=== PATIENT | female | born 1940 | race Caucasian/White ===

== ENCOUNTER 2016-10-06 11:43 | Emergency (ER) | payer OTHER ==
[~2016-10-06] VITALS: Ht 175.3 cm; Wt 74.4 kg
[2016-10-06] MEDS ORDERED: AMLODIPINE BESYL5 M1 PO (12:12)
[2016-10-06] MEDS ORDERED: TRIAMTERENE-HC1 EAC1 PO (12:12)
--- NOTE | 2016-10-06 12:12 | ED HAND/WRIST INJURY COMPLAINT ---
History of Present Illness General Chief Complaint: Hand or Wrist Injury Stated Complaint: LEFT HAND PAIN NO INJURY Source: patient Exam Limitations: no limitations Vital Signs & Intake/Output Vital Signs & Intake/Output Vital Signs Date Time Temp Pulse Resp B/P Pulse O2 O2 Flow FiO2 Ox Delivery Rate 10/06 1349 98.0 88 18 146/72 96 Room Air 10/06 1147 97.7 91 20 159/78 97 Room Air Allergies Coded Allergies: NO KNOWN ALLERGIES (03/10/11) NKA PER ANTIBIOTIC ORDER SHEET - SJS Reconcile Medications Amlodipine Besylate 5 MG TABLET 1 TAB PO DAILY HEART (Reported) Calcium Carbonate (TUMS) 200 MG CALCIUM (500 MG) TAB.CHEW 2 TAB PO DAILY GI ( Reported) Multivit-Min/FA/Lycopen/Lutein (Centrum Silver Tablet) 0.4 MG-300 MCG-250 MCG TABLET 1 TAB PO DAILY SUPPLEMENT (Reported) Simvastatin (Simvastatin*) 20 MG TABLET 1 TAB PO QPM CHOLESTEROL (Reported) Triamterene/Hydrochlorothiazid (Triamterene-Hctz 37.5-25 MG Tb) 37.5 MG-25 MG TABLET 1 TAB PO DAILY HEART (Reported) Triage Note: PT TO ED C/O LEFT HAND PAIN SINCE TUESDAY NIGHT. DENIES ANUY OBVIOUS INJURY. "I DON'T KNOW IF IT'S SPRAINED OR THE GOUT." TOOK ADVIL WITH SOME RELIEF. DECLINING MEDS IN TRIAGE. Triage Nurses Notes Reviewed? yes Occurred: yesterday Duration: day(s): (1), constant Timing: recent history Injury Environment: home Severity: moderate, severe Pain/Injury Location: Left: Wrist. Method of Injury: lifting No Modifying Factors: none HPI: 76-year-old female comes into emergency room for further evaluation of left wrist pain. Patient reports that she was lifting a heavy pot yesterday and has been experiencing pain and swelling in the left wrist since then. Denies any direct trauma. Denies any falls. Pain is worse with any type or range of motion. Denies any other associated symptoms. (SADIA GREY,COMFORT) Past History Travel History Traveled to [place] past 21 day No Medical History Any Pertinent Medical History? none Surgical History Surgical History: non-contributory Psychosocial History Who do you live with Spouse Services at Home None What is your primary language Italian Tobacco Use: Never used ETOH Use: denies use Illicit Drug Use: denies illicit drug use Family History Hx Contributory? No (COMFORT GERARD) Review of Systems Review of Systems Constitutional: Reports: no symptoms. EENTM: Reports: no symptoms. Respiratory: Reports: no symptoms. Cardiovascular: Reports: no symptoms. GI: Reports: no symptoms. Genitourinary: Reports: no symptoms. Musculoskeletal: Reports: see HPI. Skin: Reports: no symptoms. Neurological/Psychological: Reports: no symptoms. Hematologic/Endocrine: Reports: no symptoms. Immunologic/Allergic: Reports: no symptoms. All Other Systems: Reviewed and Negative (COMFORT GERARD) Physical Exam Physical Exam General Appearance: well developed/nourished, mild distress Head: atraumatic Eyes: Bilateral: normal appearance. Ears, Nose, Throat: normal ENT inspection, hearing grossly normal Neck: normal inspection Cardiovascular/Respiratory: no respiratory distress Back: normal inspection Wrist Left: soft tissue tenderness, limited range of motion Hand Left: normal inspection Hand Right: normal inspection Neurologic/Tendon: normal motor functions, normal tendon functions, responds to pain Skin: intact, normal color, warm/dry Lymphatic: no anterior cervical marisol (COMFORT GERARD) Progress Differential Diagnosis: contusion, compartment syndrome, dislocation, felon, fracture, paronychia, septic arthritis, sprain, tenosynovitis Plan of Care: Orders Procedure Date/time Status Durable Medical Equipment 10/06 1330 Active Diagnostic Imaging: Viewed by Me: Radiology Read. Discussed w/RAD: Radiology Read. Radiology Impression: EXAM TYPE: RAD - XRY-WRIST COMPLETE-LEFT EXAMINATION: XR WRIST, LEFT CLINICAL INFORMATION: Pain. Evaluate for fracture. COMPARISON: None TECHNIQUE: Left wrist, 4 views. FINDINGS: Chondrocalcinosis of the wrist, including involvement of the scapholunate ligament, lunatotriquetral ligament and triangular fibrocartilage. 0.3 cm of ulna negative variance. The distal radius and ulna are intact. No soft tissue swelling in the examined forearm. Scapholunate joint space measures nearly 0.5 cm wide; this suggests presence of tearing or stretching of the scapholunate ligament. The radiocarpal and midcarpal joint spaces are maintained. Small marginal osteophytes are present at the first carpometacarpal joint. No evidence of carpal bone fracture. IMPRESSION : 1. No acute osseous injury. 2. 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 3. Mild osteoarthrosis of the first carpometacarpal joint. DICTATED BY: IRIS PERRY MD DATE/TIME DICTATED:1313 PUBLIC RELATIONS ANALYST:CORINNE DATE/TIME TRANSCRIBED:10/06/161313 (COMFORT GERARD) Departure Departure Disposition: HOME OR SELF CARE Condition: Stable Clinical Impression Primary Impression: Scapholunate ligament injury with no instability Referrals: FAISAL ALVAREZ,DANNA Hartmann (PCP/Family) ANA CRISTINA TYSON MD Additional Instructions: Ice. Take Tylenol for pain. Follow-up with orthopedic doctor. Return if any concerns worsening symptoms. Please go over all results of today's visit with your primary care doctor. Contact your primary care doctor to let them know you were here in the emergency room. There may be nonspecific findings which may not be related to your visit today here in the emergency room but may require further evaluation and chronic monitoring by your primary care doctor. If you had a laceration today the chance of foreign body always remains. You should follow-up with your primary care doctor for recheck in 3-5 days for a wound check. If you had an x-ray done there is a chance that a fracture could have been missed on initial read and you should follow-up with your primary care doctor for repeat x-rays if symptoms persist. If your blood pressure was elevated here in the emergency room please have rechecked by her primary care doctor within the next 48 hours by your primary care doctor. If you were prescribed a narcotic here in the emergency room or any type of controlled substances you're not allowed to drive while taking this medication or operate any type of heavy machinery. Narcotics can make you feel lightheaded dizziness nausea and can cause constipation. You may need to picking machine operator a stool softener. Thank you for choosing [facility] emergency room. Please return to the emergency room immediately if you have any other concerns worsening of symptoms. Departure Forms: Customer Survey General Discharge Information (COMFORT GERARD) PA/SPOUTING INSTALLER Co-Sign Statement Statement: ED Attending supervision documentation- x I saw and evaluated the patient. I have also reviewed all the pertinent lab results and diagnostic results. I agree with the findings and the plan of care as documented in the PA's/SPOUTING INSTALLER's documentation. [] I have reviewed the ED Record and agree with the PA's/SPOUTING INSTALLER's documentation. [] Additions or exceptions (if any) to the PAs/SPOUTING INSTALLER's note and plan are summarized below: [] (LELA ALVAREZ,KIM) Procedures Splinting Location: left wrist Manual Alignment Performed: No Pre-Made Type: velcro Splint: thumb spica, wrist Splint Applied By: splint applied by me Pre-Proc Neuro Vasc Exam: normal Post-Proc Neuro Vasc Exam: normal (COMFORT GERARD)
[2016-10-06] MEDS ORDERED: CENTRUM SILVER1 EAC3 PO (12:13)
[2016-10-06] MEDS ORDERED: TUMS200 MG PO (12:13)
[2016-10-06] MEDS ORDERED: SIMVASTATIN20 M2 PO (12:13)
--- NOTE | 2016-10-06 13:21 | RADIOLOGY REPORT ---
EXAMINATION: XR WRIST, LEFT CLINICAL INFORMATION: Pain. Evaluate for fracture. COMPARISON: None TECHNIQUE: Left wrist, 4 views. FINDINGS: Chondrocalcinosis of the wrist, including involvement of the scapholunate ligament, lunatotriquetral ligament and triangular fibrocartilage. 0.3 cm of ulna negative variance. The distal radius and ulna are intact. No soft tissue swelling in the examined forearm. Scapholunate joint space measures nearly 0.5 cm wide; this suggests presence of tearing or stretching of the scapholunate ligament. The radiocarpal and midcarpal joint spaces are maintained. Small marginal osteophytes are present at the first carpometacarpal joint. No evidence of carpal bone fracture. IMPRESSION: 1. No acute osseous injury. 2. 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 3. Mild osteoarthrosis of the first carpometacarpal joint.
[2016-10-06 13:49] VITALS: BP 146/72
== END 2016-10-06 13:50 ==
LOC: ERH 11:43
DX: S69.92XA Unspecified injury of left wrist, hand and finger(s), initial encounter (principal); X58.XXXA Exposure to other specified factors, initial encounter; Y92.9 Unspecified place or not applicable; Y93.9 Activity, unspecified
CPT/HCPCS: 73110-LT